=== PATIENT | female | born 1980 | race Caucasian/White ===

== ENCOUNTER → 2016-11-17 | Outpatient (CLI) | payer OTHER | LOC: EMI 09:44 | DX: G35 Multiple sclerosis (principal) | CPT/HCPCS: 70553; A9577; J7050 ==

== ENCOUNTER → 2021-06-20 | Outpatient (CLI) | payer OTHER | LOC: EMI 13:13 | DX: G35 Multiple sclerosis (principal) | CPT/HCPCS: 70551 ==